=== PATIENT | female | born 1990 | race Caucasian/White ===

== ENCOUNTER 2020-02-15 11:41 | Emergency (ER) | payer OTHER ==
[~2020-02-15] VITALS: Ht 154.9 cm; Wt 56.7 kg
[2020-02-15] MEDS ORDERED: MULTI VITAMIN1 EACH PO (11:58)
[2020-02-15] MEDS ORDERED: NORFLEX100MG PO (16:04)
[2020-02-15] MEDS ORDERED: ZITHROMAX500 MG PO (16:04)
== END 2020-02-15 16:08 | disposition home or self-care (01) ==
LOC: ER 11:41
DX: M54.2 Cervicalgia (principal); M54.5 Low back pain; Z03.818 Encounter for observation for suspected exposure to other biological agents ruled out

== ENCOUNTER 2023-04-23 11:18 | Emergency (ER) | payer OTHER ==
[~2023-04-23] VITALS: Ht 154.9 cm; Wt 63.5 kg
[~2023-04-23 11:18] MED LIST: MULTI VITAMIN1 EACH PO; NORFLEX100MG PO; ZITHROMAX500 MG PO
[2023-04-23] MEDS ORDERED: ZITHROMAX500 MG PO (13:21)
[2023-04-23] MEDS ORDERED: TUSNEL LIQUID178 ML PO (13:21)
[2023-04-23] MEDS ORDERED: IPRAT-ALBUT 0.5-3 ML IH (13:21)
== END 2023-04-23 13:40 | disposition home or self-care (01) ==
LOC: ER 11:18
PROVIDERS: General Practice
DX: B34.9 Viral infection, unspecified (principal); Z20.822 Contact with and (suspected) exposure to COVID-19